=== PATIENT | female | born 1945 | race Caucasian/White ===

== ENCOUNTER → 2016-05-19 | Outpatient (CLI) | payer MEDICARE, OTHER ==
--- NOTE | 2016-05-19 11:03 | KCIC ---
PROCEDURE Right foot radiographs. HISTORY M79.671, right foot pain for 6+ months. No known injury. COMPARISON None. FINDINGS AP, lateral, and oblique views of the right foot. No acute fracture or dislocation is identified. No dislocation is identified. No focal soft tissue swelling is seen. No significant degeneration is appreciated. IMPRESSION Unremarkable right foot radiographs. Electronically signed by: Alcides Manuel MD (May 19, 2016 11:02:10)
== END | disposition home or self-care (01) ==
LOC: KCIC 10:12
PROVIDERS: ATTEND Nurse Practitioner Family
DX: M79.671 Pain in right foot (principal)
CPT/HCPCS: 73630

== ENCOUNTER → 2016-06-30 | Outpatient (CLI) | payer MEDICARE, OTHER ==
--- NOTE | 2016-06-30 17:13 | KCIC ---
PROCEDURE CT of the cervical spine without contrast HISTORY Degenerative arthritis of the cervical spine. Chronic neck pain with bilateral radiculopathy. No trauma or injury. COMPARISON 03/18/2015. TECHNIQUE Standard noncontrast imaging. Exposure: One or more of the following individualized dose reduction techniques were utilized for this exam: 1. Automated exposure control. 2. Adjustment of the mA and/or kV according to patient size. 3. Use of iterative reconstruction technique. FINDINGS Ring of C1 intact No evidence of acute fracture or aggressive bone destruction. Multilevel cervical spondylosis with osteophytes. These findings are greatest at C4-5, C5-6 and C6-7 C2-3: There appears to be a small central disc bulge or protrusion, similar. C3-C4: Mild disc bulge slightly indenting the thecal sac and with mild left neural foraminal narrowing, appears similar. C4-C5: There is broad disc bulging/protrusion, greater towards the right. Narrowing of the central spinal canal, also slightly greater towards the right. Mild neural foraminal narrowing bilaterally. The appearance is unchanged since prior study. C5-C6: Broad disc bulging and osteophytes. Moderate narrowing of the spinal canal. Severe bilateral neural foraminal stenosis, greater on the left. Findings appears stable since prior study. C6-C7: Posterior osteophytes and disc material, results in mild or moderate central spinal stenosis. There does appear to be some soft tissue narrowing of the neural foramina bilaterally, left greater than right, similar to the prior study. C7-T1: Unremarkable Prevertebral soft tissues appear unremarkable without swelling or hematoma. IMPRESSION Cervical spondylosis, appears similar to the prior study. Electronically signed by: Alcides Morgan MD (Jun 30, 2016 17:12:22)
== END | disposition home or self-care (01) ==
LOC: KCIC CT 11:04
PROVIDERS: ATTEND Nurse Practitioner Family
DX: M47.892 Other spondylosis, cervical region (principal)
CPT/HCPCS: 72125

== ENCOUNTER → 2016-09-13 | Outpatient (CLI) | payer MEDICARE, OTHER ==
[~2016-09-13] MED LIST: ACET325T9 PO; CALC625T20 PO; FLUT1DIS IH; INSU100I13 SQ; INSU100V31 SQ; MULT1TAB52 PO; SITA100T PO; TELM40TA PO
[2016-09-13 15:23] LABS: BASO # 0.2 x10^3/uL (0.0-0.2); BASO % 1 % (0-3); EOS % 2 % (0-3); HEMATOCRIT 40.8 % (36.0-47.0); HEMOGLOBIN 13.9 g/dL (12.0-15.5); LYMPH # 4.5 x10^3/uL (1.0-4.8); LYMPH % 37 % (24-48); MEAN CORPUSCULAR HEMOGLOBIN 31 pg (25-35); MEAN CORPUSCULAR HGB CONC 34 g/dL (31-37); MEAN CORPUSCULAR VOLUME 92 fL (79-100); MONO % 7 % (0-9); NEUT % 52 % (31-73); PLATELET COUNT 210 x10^3/uL (140-400); RED BLOOD COUNT 4.46 x10^6/uL (3.50-5.40); RED CELL DISTRIBUTION WIDTH 14.2 % (11.5-14.5); WHITE BLOOD COUNT 12.1 x10^3/uL (4.0-11.0)
--- NOTE | 2016-09-13 15:41 | EKG ---
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
[2016-09-13 15:57] LABS: ALBUMIN 4.1 g/dL (3.4-5.0); ALBUMIN/GLOBULIN RATIO 1.1 (1.0-1.7); CALCIUM 9.7 mg/dL (8.5-10.1); CREATININE 1.5 mg/dL (0.6-1.0); GFR 34.1; POTASSIUM 4.1 mmol/L (3.5-5.1); TOTAL BILIRUBIN 0.4 mg/dL (0.2-1.0); TOTAL PROTEIN 7.7 g/dL (6.4-8.2)
== END | disposition home or self-care (01) ==
LOC: SURGPAT 14:23
PROVIDERS: ATTEND Neurological Surgery
DX: I49.8 Other specified cardiac arrhythmias (principal); R94.31 Abnormal electrocardiogram [ECG] [EKG]
CPT/HCPCS: 36415; 80053; 85027; 93005

== ENCOUNTER → 2016-09-15 | Outpatient (CLI) | payer MEDICARE, OTHER | END | disposition home or self-care (01) | LOC: OPS 08:43 | PROVIDERS: ATTEND Neurological Surgery | DX: M54.12 Radiculopathy, cervical region (principal); M48.02 Spinal stenosis, cervical region | CPT/HCPCS: 36415; 87641 ==

== ENCOUNTER 2016-09-19 07:11 | Inpatient (IN) | payer MEDICARE, OTHER ==
[~2016-09-19] VITALS: Ht 160 cm; Wt 82.6 kg
[2016-09-19] VITALS (12 sets, daily range): BP systolic 107–149; BP diastolic 68–88
[~2016-09-19 07:11] MED LIST changes: +BACITRACIN 50,000 UNIT in IV NORMAL SALINE 1000ML BAG 1,000 ML IRR ONE; +IV RINGERS,LACTATED 1000ML 1,000 ML IV SCH; +LIDOCAINE 1% 1 ML SYRINGE. ID PRN; +MORPHINE SULFATE 2 MG/ML DISP.SYRIN. IV PRN; +ONDANSETRON PF 4 MG/2 ML VIAL. IV PRN; +PROCHLORPERAZINE 10 MG/2 ML VIAL. IV PRN; +fentaNYL PF VIAL 100 MCG/2 ML VIAL IV PRN
[2016-09-19] MEDS ORDERED: SCOPOLAMINE 1.5MG PATCH. TD ONE (08:00)
[2016-09-19] MEDS ORDERED: DESFLURANE > 120 MINUTES IH ONE (08:08)
[2016-09-19] MEDS ORDERED: THROMBIN TOPICAL 20,000 UNIT SPRAY.SYRN KIT TP ONE (08:09)
[2016-09-19] MEDS ORDERED: BUPIVAC MPF-EPI 0.5%-1:200000 30 ML VIAL. ONE (08:09)
[2016-09-19] MEDS ORDERED: GELATIN SPONGE SIZE 100. ONE (08:09)
[2016-09-19] MEDS ORDERED: PROPOFOL 100 ML IV ONE (08:18)
[2016-09-19] MEDS ORDERED: DEXAMETHASONE SOD PHOS 20 MG/5 ML VIAL. ONE (08:22)
[2016-09-19] MEDS ORDERED: ROCURONIUM 50 MG/5 ML VIAL. ONE (08:22)
[2016-09-19] MEDS ORDERED: fentaNYL PF VIAL 100 MCG/2 ML VIAL ONE (08:22)
[2016-09-19] MEDS ORDERED: LIDOCAINE 2% PF Vial for OR 5 ML VIAL. ONE (08:22)
[2016-09-19] MEDS ORDERED: ONDANSETRON PF 4 MG/2 ML VIAL. ONE (08:22)
[2016-09-19] MEDS ORDERED: PROPOFOL 20 ML IV ONE (08:22)
[2016-09-19] MEDS ORDERED: REMIFENTANIL 2 MG VIAL. IV ONE (08:22)
[2016-09-19] MEDS ORDERED: 0.9 % SODIUM CHLORIDE 50 ML VIAL. IJ ONE (08:22)
--- NOTE | 2016-09-19 08:41 | PREOP HP ---
DATE OF SERVICE: 09/19/2016 HISTORY OF PRESENT ILLNESS: The patient is a pleasant 70-year-old, who has undergone 7 lumbar surgeries in the past. Her current problem is back pain, which radiates into her shoulders equally. She has daily headaches. The problem has been present for several years and has become very severe this year. She rates her pain as a 5-6/10. Virtually any activity when using her arms increases her pain. She had epidural steroid injections without help. She had cervical facet rhizotomy, which she said did help a little bit. She takes Aleve for pain and also rest when her neck is painful to gain relief. PAST MEDICAL HISTORY: Artificial knee and hypertension. PAST SURGICAL HISTORY: Surgery for degenerative disk disease and bulging disk in 1992, 2016. FAMILY HISTORY: Diabetes, heart problem/disease, hypertension. SOCIAL HISTORY: Retired. . Denies substance abuse. Denies tobacco use. Drinks alcohol 1 or 2 times per month. Drinks soda daily. ALLERGIES: No known drug allergies. CURRENT MEDICATIONS: Micardis, Januvia, Humalog, Lantus, daily vitamin, fiber and Aleve. REVIEW OF SYSTEMS: A 12-point review of systems was obtained and is noncontributory except for that mentioned above. PHYSICAL EXAMINATION: NEUROSURGERY EXAMINATION: GENERAL APPEARANCE: Alert, pleasant, in no acute distress. HEENT: Head normocephalic and atraumatic. NECK AND THYROID: Zchv-xh-azajhlvz tenderness with palpation of posterior cervical region. SKIN: Warm and dry. MUSCULOSKELETAL: Cervical paraspinal muscle bulk is normal, restricted range of motion of the cervical spine, normal range of motion of the upper extremities bilaterally. EXTREMITIES: No clubbing, cyanosis or edema. NEUROLOGIC: Alert and oriented x 3, normal recent and remote memory, strength 5/5 in bilateral upper and 5/5 in bilateral lower extremities, sensory was intact to light touch in the upper and lower extremities, reflexes were trace in the symmetric in the upper and lower extremities bilaterally, normal gait. IMAGING: Reviewed. I reviewed her cervical myelogram and post-myelogram, CT scan. On that study, there is moderately severe diffuse cervical spondylosis. PRINCIPAL ABNORMALITIES: C5-C6. At that level, there are posterior vertebral body osteophytes with severe bilateral neural foraminal narrowing. The AP diameter of the canal is about 7 mm. On the plain myelography portion, there is ____ swelling at the C5 nerve roots bilaterally at this level. ASSESSMENTS: 1. There is spondylosis with radiculopathy, cervical region. 2. Spinal stenosis, cervical region. PLAN: I explained to her that I could operate at C5-C6. I felt that this would help her to a degree. However, because of her diffuse cervical spondylosis, she may develop future problems with her neck, which could require surgery and also she may have little improvement following surgery. ____ whether or not to proceed with ____ operation. She would strongly like to go ahead with surgery. I did discuss with her in detail. I carefully outlined the risks of surgery including soft tissue structures injury in the neck and the sequelae of injury for example with stroke, paralysis, injury to the esophagus, trachea or infection. She understands. She would like to go ahead with surgery. We will make the arrangements. AKSHAT SPRING MD DR: PADMINI/an JOB#: [id number] / [id number]
[2016-09-19] MEDS ORDERED: ePHEDrine PF IN SALINE 50 MG/5 ML DISP.SYRIN IV ONE (09:10)
[2016-09-19] MEDS ORDERED: GLYCOPYRROLATE 1 MG/5 ML VIAL. ONE (09:10)
[2016-09-19] MEDS ORDERED: PHENYLEPHRINE in 0.9% NACL PF 1 MG/10 ML DISP.SYRIN. IV ONE (09:20)
[2016-09-19] MEDS: fentaNYL PF VIAL 100 MCG/2 ML VIAL IV PRN ×2 (11:47→12:02)
[2016-09-19] MEDS: HYDROmorphone 2 MG/ML VIAL IV PRN ×3 (12:03→13:03)
[2016-09-19] MEDS ORDERED: DEXTROSE 50% 25 GM / 50ML DISP.SYRIN. IV PRN (12:15)
[2016-09-19] MEDS ORDERED: MAG HYDROX/ALUMINUM HYD/SIMETH 30 ML ORAL.SUSP PO PRN (12:15)
[2016-09-19] MEDS ORDERED: MAGNESIUM HYDROXIDE 2,400 MG/30 ML ORAL.SUSP. PO PRN (12:15)
[2016-09-19] MEDS ORDERED: diphenhydrAMINE HCL 25 MG CAPSULE PO PRN (12:15)
[2016-09-19] MEDS ORDERED: HYDROcodone/APAP 7.5/325MG 1 TAB TABLET PO PRN (12:15)
[2016-09-19] MEDS ORDERED: ACETAMINOPHEN 325 MG TABLET. PO PRN ×2 (12:15)
[2016-09-19] MEDS ORDERED: CALCIUM CARBONATE 500 MG TAB.CHEW PO PRN (12:15)
[2016-09-19] MEDS ORDERED: fentaNYL PF VIAL 100 MCG/2 ML VIAL IV PRN (12:15)
[2016-09-19] MEDS ORDERED: diphenhydrAMINE 50 MG/ML VIAL IV PRN (12:15)
[2016-09-19] MEDS ORDERED: ONDANSETRON PF 4 MG/2 ML VIAL. IV PRN (12:15)
[2016-09-19] MEDS ORDERED: 0.9 % SODIUM CHLORIDE 10 ML DISP.SYRIN. IV PRN (12:15)
[2016-09-19] MEDS: POTASSIUM CL 20MEQ-0.45% NACL 1,000 ML IV SCH (13:04)
--- NOTE | 2016-09-19 13:57 | OP ---
DATE OF SURGERY: 09/19/2016 PREOPERATIVE DIAGNOSES: Cervical spondylosis with severe neural foraminal narrowing and cervical radiculopathy, C5-C6. POSTOPERATIVE DIAGNOSES: Cervical spondylosis with severe neural foraminal narrowing and cervical radiculopathy, C5-C6. OPERATION PERFORMED: An anterior cervical microdiskectomy at C5-C6, anterior cervical interbody fusion C5-C6 with allograft and autograft bone, and anterior cervical plate C5-C6. The operation was done with multimodality monitoring including EMG monitoring, SSEP monitoring, motor evoked potentials, fluoroscopy, and microscopic dissection. SURGEON: Seb Spring M.D. DIRECTOR OF NUCLEAR MEDICINE: Ritchie Dodd MD, assisted with surgery, assisted with the exposure and the microdiskectomy as well as the closure. OPERATIVE INDICATIONS: The patient is a very pleasant 71-year-old woman who developed intractable neck and bilateral shoulder and arm pain and was found after failing conservative measures to have severe foraminal stenosis and nerve root swelling at C5-C6. She had diffuse cervical spondylosis, and I explained to her the surgery most likely would help her but that she could have other problems in the future. She understood the surgery. She understood the risks, she understood the techniques. She wished to go ahead. DESCRIPTION OF PROCEDURE: Following general endotracheal anesthesia, the patient was positioned supine on the Operating Room table. The anterior cervical region was prepped and draped in standard fashion. FRED hose and AV impulse boots were applied for DVT prophylaxis. A microscope was draped. Fluoroscopy was draped and brought into field. Monitoring was established. Ancef 2 g was given less than 1 hour prior to initiation of surgery. Using fluoroscopic guidance, incision was made in the midline around to the right side in a skin crease. I dissected down through skin and subcutaneous tissue and dissected on the medial aspect of the sternocleidomastoid and carotid artery sheath after sharply dividing the platysma. I did use fluoroscopic imaging to guide my approach, and I identified the C5-C6 interspace. I placed an anterior cervical retractor with the blades wedged in the longus colli muscle. I brought in the microscope at this time. I placed 14-mm pins in the vertebral body of C5 and C6 and gently distracted the disc space. I incised the anterior annulus. I used a high speed air drill and drilled the anterior spurring, and I saved this bone to augment the allograft bone for the interbody fusion. I then performed a discectomy with pituitary rongeurs as well as the endplate scraper posteriorly. I drilled the posterior spurring and used 1 and 2 mm micro Kerrisons to remove the annulus, and then I opened the ligament with the micro blunt hook and then opened this widely with 1-2 mm micro Kerrison's. As I worked, I felt that I had an excellent opening of the neural foramina. The endplates have been prepared for fusion. Hemostasis was excellent. I measured and placed a 6 mm interbody fusion cage which was packed with allograft and autograft bone, and this was gently tapped into position. I then further drilled the anterior spurring to allow excellent positioning of the plate, and after that has been performed, fusion plate of 22 mm using [employer] system was dropped into place and four 13-mm screws were placed without difficulty and locked. I irrigated it copiously, removed the retractors. Hemostasis was perfect. I then closed the wound with absorbable sutures. The skin was closed with 4-0 subcuticular stitch. The operation went very well. I was quite pleased with the surgery. SEB SPRING MD DR: PADMINI/an JOB#: [id number] / [id number] BRYAN
[2016-09-19] MEDS: METHOCARBAMOL 750 MG TABLET PO SCH ×2 (16:19→20:39)
[2016-09-19] MEDS: INSULIN ASPART 300 UNITS/3 ML INSULN.PEN SQ SCH (16:58)
[2016-09-19] MEDS: ALBUTEROL SULFATE 2.5 MG/3 ML NEBU. NEB SCH (19:51)
[2016-09-19] MEDS: BUDESONIDE 0.5 MG/2 ML NEBU. NEB SCH (19:51)
[2016-09-19] MEDS: DOCUSATE SODIUM 100 MG CAPSULE. PO SCH (20:39)
[2016-09-19] MEDS: HYDROcodone/APAP 7.5/325MG 1 TAB TABLET PO PRN (20:40)
[2016-09-19] MEDS ORDERED: INSULIN DETEMIR 300 UNITS/3 ML INSULN.PEN. SQ SCH (21:00)
[2016-09-19] MEDS ORDERED: NON FORMULARY ITEM (Fluticasone/Salmeterol (Advair 100-50 Diskus) 1 INH) IH SCH (21:00)
[2016-09-20] MEDS: POTASSIUM CL 20MEQ-0.45% NACL 1,000 ML IV SCH (02:20)
[2016-09-20] MEDS: HYDROcodone/APAP 7.5/325MG 1 TAB TABLET PO PRN (02:41)
[2016-09-20 02:42] VITALS: BP 132/73
[2016-09-20 06:03] VITALS: BP 117/73
[2016-09-20] MEDS: ALBUTEROL SULFATE 2.5 MG/3 ML NEBU. NEB SCH ×2 (07:49→11:09)
[2016-09-20] MEDS: BUDESONIDE 0.5 MG/2 ML NEBU. NEB SCH (07:50)
[2016-09-20] MEDS: DOCUSATE SODIUM 100 MG CAPSULE. PO SCH (07:52)
[2016-09-20] MEDS: METHOCARBAMOL 750 MG TABLET PO SCH (07:52)
[2016-09-20] MEDS: INSULIN ASPART 300 UNITS/3 ML INSULN.PEN SQ SCH (08:07)
--- NOTE | 2016-09-20 08:07 | ACF ---
Admission Forms Criteria PAIN MANAGEMENT GR Clinical Indications for Admission to Inpatient Care (Place 'X' for any and all applicable criteria): Hospital admission is needed for appropriate care of the patient because of 1 or more of the following are present (1)(2)(3)(4)(5): [ ]I. Severe pain requiring acute inpatient management as indicated by 1 or more of the following (2)(5)(10): [ ]a) Continuous or frequent (eg, every 2 to 4 hours) parenteral analgesics required [A] [ ]b) Necessity (ie, alternative approaches not effective) for analgesic regimen that can only be performed or initiated in inpatient setting [X]II. Pain causing debilitation to the point of inability to function or be supported at any other level of care [ ]III. Severe side effects from pain medications as indicated by ANY ONE of the following (12)(13)(14)(15): [ ]a) Uncontrollable seizures [ ]b) Cardiac arrhythmias of immediate concern [ ]c) Dehydration that is severe or persistent [ ]d) Vomiting that is severe or persistent [ ]e) Altered mental status that is severe or persistent [ ]f) Obstipation with inadequate GI function to maintain nutrition The original [employer] content created by [employer] has been revised. The portions of the content which have been revised are identified through the use of italic text or in bold, and [employer] [facility] [employer] has neither reviewed nor approved the modified material. All other unmodified content is copyright [employer] Please see references footnoted in the original [employer] edition 2016 Admission Criteria Met?: Yes JESSENIA HINES Sep 20, 2016 08:07
[2016-09-20] MEDS ORDERED: CALCIUM POLYCARBOPHIL 625 MG TABLET PO SCH (09:00)
[2016-09-20] MEDS ORDERED: LOSARTAN POTASSIUM 50 MG TABLET. PO SCH (09:00)
[2016-09-20] MEDS ORDERED: MULTIVITAMIN with MINERAL TABLET. PO SCH (09:00)
[2016-09-20] MEDS ORDERED: LINAGLIPTIN 5 MG TABLET PO SCH (09:00)
--- NOTE | 2016-09-20 09:35 | DISCH ---
DISCHARGE INSTRUCTIONS Condition on Discharge Condition on Discharge: Stable Activity After Discharge Activity Instructions for Disc: Activity as tolerated, Avoid exertion Other activity instructions: No driving for a week Bathing Instructions: Shower-keep dressing dry Lifting Instructions after Dis: No heavy lifting, No pulling or pushing, Do not lift >10 pounds Diet after Discharge Additional Diet Restrictions: resume home diet Wound Incision Care Wound/Incision Care: Ice to area for comfort Other wound/incision instructi: may remove dressing in 48 hrs if dry then may shower- no soaking Contacting the after DC Call your doctor for: Concerns you may have Follow-Up Follow up with: Dr. Schwartz's nurse in 2 weeks [phone] FAVIOLA PEREIRA BAND SALVAGER Sep 20, 2016 09:35
[2016-09-20] MEDS ORDERED: HYDR-2762 PO (09:46)
[2016-09-20] MEDS ORDERED: DOCU-109 PO (09:46)
[2016-09-20] MEDS ORDERED: METH750T2 PO (09:47)
[2016-09-20 11:00] VITALS: BP 128/86
--- NOTE | 2016-09-20 22:08 | DS ---
DATE OF DISCHARGE: 09/20/2016 DISCHARGE DIAGNOSES: Cervical spondylosis with severe neural foraminal narrowing and cervical radiculopathy, C5-C6. OPERATION PERFORMED: Anterior cervical microdiskectomy at C5-C6, anterior cervical interbody fusion C5-C6 with allograft and autograft bone and anterior cervical plate, C5-C6. HISTORY OF PRESENT ILLNESS: The patient is a pleasant 71-year-old, who developed intractable neck, bilateral shoulder, arm pain and was found to have severe foraminal stenosis and nerve root swelling at C5-C6. She had a few cervical spondylosis and after failing conservative measures, I explained to her the surgery likely would help her, but that she may have other problems in the future. She understood the surgery, the risks, the technique and the expected postoperative course and wished to go ahead. HOSPITAL COURSE: She was admitted to the floor postoperatively, where she did well. She was able to be up ambulating in the room and in the halls. Physical therapy was initiated and instruction was given to her regarding her activities. Her pain is well controlled and she is in good condition to discharge home today. DISCHARGE MEDICATIONS: She will resume her medications per the MRAD. DISCHARGE INSTRUCTIONS: She was instructed regarding incision care, activity restrictions and expectations for the next several weeks. She will follow up in our office in 2 weeks. She understands to call with any questions or concerns. AKSHAT SPRING MD DR: ROLA/an JOB#: [id number] / [id number]
--- NOTE | 2016-09-21 11:34 | PATHOLOGY ---
PATHOLOGY REPORT * * * * * * * * FINAL DIAGNOSIS: Segments of fibrocartilaginous and skeletal muscle tissue and bone, cervical disc: - Degenerative changes of fibrocartilaginous tissue. COMMENT: There is no evidence of an acute inflammatory process or malignancy. REPORT ELECTRONICALLY SIGNED BY: Trung Hernandez M.D. DATE/TIME: 09/21/2016 11:33 * * * * * * * * GROSS PATHOLOGY: Received in formalin labeled "Carie Meyers cervical disc" are multiple segments of green, rubbery, and gritty tissue admixed with bone. The specimen measures 2.5 x 2.0 x 0.8 cm in aggregate dimensions. The tissue is submitted entirely in cassette A1, following decalcification. INITIAL CPT CODE(S): A; 48834, 19877 Professional services performed [place] [facility] [place] [address] Technical services performed by [facility] at [address] [place] [address], [facility] [address], [place] [address]. SPECIMEN(S) RECEIVED: A.Cervical disc CLINICAL HISTORY: Cervical stenosis and radiculopathy PATIENT: CARIE MEYERS /AGE: 6 1945 (Age: 71) PATIENT #: [id number] ALT CASE #: SPECIMEN COLLECTION DATE: 09/19/2016 SPECIMEN RECEIVED DATE: 09/19/2016 [facility] - [address] [place] [address] - PHONE: [phone] * * * END OF REPORT * * *
== END 2016-09-20 12:45 | disposition home or self-care (01) | DRG 473 ==
LOC: OPSVCIP 07:11 → 4 SOUTHEST 12:30
PROVIDERS: ADMIT Neurological Surgery; ATTEND Neurological Surgery
PROC: 4A11X4G Monitoring of Peripheral Nervous Electrical Activity, Intraoperative, External Approach (ICD-10-PCS; 2016-09-19)
PROC: 0RB30ZZ Excision of Cervical Vertebral Disc, Open Approach (ICD-10-PCS; 2016-09-19)
PROC: 0RG10A0 Fusion of Cervical Vertebral Joint with Interbody Fusion Device, Anterior Approach, Anterior Column, Open Approach (ICD-10-PCS; principal; 2016-09-19 08:30)
DX: M47.22 Other spondylosis with radiculopathy, cervical region (principal); I10 Essential (primary) hypertension; M48.02 Spinal stenosis, cervical region; Z82.49 Family history of ischemic heart disease and other diseases of the circulatory system; Z83.3 Family history of diabetes mellitus
CPT/HCPCS: 76000; 82962; 88304; 88311; 94250; 94640; 94760; C1713; J0690; J0780; J1100; J1170; J1815; J2370; J2405; J2704; J3010; J3490; J7030; J7120; 97530

== ENCOUNTER → 2016-12-20 | Outpatient (CLI) | payer MEDICARE, OTHER ==
[~2016-12-20] MED LIST changes: -BACITRACIN 50,000 UNIT in IV NORMAL SALINE 1000ML BAG 1,000 ML IRR ONE; +DOCU-109 PO; +HYDR-2762 PO; -IV RINGERS,LACTATED 1000ML 1,000 ML IV SCH; -LIDOCAINE 1% 1 ML SYRINGE. ID PRN; +METH750T2 PO; -MORPHINE SULFATE 2 MG/ML DISP.SYRIN. IV PRN; -ONDANSETRON PF 4 MG/2 ML VIAL. IV PRN; -PROCHLORPERAZINE 10 MG/2 ML VIAL. IV PRN; -fentaNYL PF VIAL 100 MCG/2 ML VIAL IV PRN
--- NOTE | 2016-12-20 14:17 | KCIC ---
Examination: 2 views of the cervical spine HISTORY: History of status post fusion. COMPARISON: CT from 06/30/2016 FINDINGS: Anterior cervical fusion identified at C5-C6 vertebral level with intervertebral disc spacer in place. The facets are well aligned. There is mild to moderate intervertebral disc height loss identified at C4-C5 vertebral level with small anterior osteophyte formation. There is moderate intervertebral disc height loss identified at C6-C7 vertebral level with small anterior osteophyte formation. The spinolaminar line is maintained. No evidence of listhesis. No evidence of prevertebral soft tissue swelling. Lateral masses of C1 are aligned with C2 vertebra. Impression: 1. Anterior cervical fusion hardware identified at C5-C6 vertebral levels with intervertebral disc spacer. 2. Mild to moderate degenerative changes identified at C4-C5 and moderate degenerative changes at C6-C7 vertebral levels. Electronically signed by: Mich Bishop MD (12/20/2016 2:14 PM) [facility]-KCIC2
== END | disposition home or self-care (01) ==
LOC: KCIC 12:56
PROVIDERS: ATTEND Neurological Surgery
DX: M47.892 Other spondylosis, cervical region (principal); Z98.1 Arthrodesis status
CPT/HCPCS: 72040

== ENCOUNTER → 2017-07-14 | Outpatient (CLI) | payer MEDICARE, OTHER | END | disposition home or self-care (01) | LOC: KCIC MAMMO 11:28 | DX: Z12.31 Encounter for screening mammogram for malignant neoplasm of breast (principal) | CPT/HCPCS: 77063; 77067 ==

== ENCOUNTER 2017-10-29 19:47 | Inpatient (IN) | payer MEDICARE, OTHER ==
[2017-10-29] MEDS ORDERED: DEXTROSE 50% 25 GM / 50ML DISP.SYRIN. IV (20:15)
[2017-10-29] MEDS ORDERED: 0.9 % SODIUM CHLORIDE 10 ML DISP.SYRIN. IV (20:15)
[2017-10-29 21:03] LABS: POC GLUCOSE 208 mg/dL (70-99)
[2017-10-29] MEDS ORDERED: hydrALAZINE 20 MG/ML VIAL. IVP (22:00)
[2017-10-29] MEDS: INSULIN GLARGINE 300 UNITS/3 ML INSULN.PEN. SQ (22:49)
[2017-10-29] MEDS: INSULIN LISPRO 300 UNITS/3 ML INSULN.PEN. SQ (22:49)
[2017-10-30] MEDS: ACETAMINOPHEN 325 MG TABLET. PO ×2 (00:59→20:06)
[2017-10-30] MEDS: INSULIN LISPRO 300 UNITS/3 ML INSULN.PEN. SQ ×6 (08:00→17:11)
[2017-10-30 08:06] LABS: POC GLUCOSE 239 mg/dL (70-99)
[2017-10-30 08:08] LABS: ADD MAN DIFF? NO
[2017-10-30 08:17] LABS: BASO # 0.1 x10^3/uL (0.0-0.2); BASO % 1 % (0-3); EOS # 0.3 x10^3/uL (0.0-0.7); EOS % 3 % (0-3); HEMATOCRIT 41.5 % (36.0-47.0); HEMOGLOBIN 14.3 g/dL (12.0-15.5); LYMPH # 3.5 x10^3/uL (1.0-4.8); LYMPH % 37 % (24-48); MEAN CORPUSCULAR HEMOGLOBIN 32 pg (25-35); MEAN CORPUSCULAR HGB CONC 34 g/dL (31-37); MEAN CORPUSCULAR VOLUME 92 fL (79-100); MONO # 0.8 x10^3/uL (0.0-1.1); MONO % 9 % (0-9); NEUT # 4.9 x10^3uL (1.8-7.7); NEUT % 51 % (31-73); PLATELET COUNT 190 x10^3/uL (140-400); RED CELL DISTRIBUTION WIDTH 13.6 % (11.5-14.5); WHITE BLOOD COUNT 9.7 x10^3/uL (4.0-11.0)
[2017-10-30] MEDS: LINAGLIPTIN 5 MG TABLET PO (08:26)
[2017-10-30] MEDS: ALBUTEROL SULFATE 2.5 MG/3 ML NEBU. NEB ×5 (08:27→19:12)
[2017-10-30] MEDS: BUDESONIDE 0.5 MG/2 ML NEBU. NEB ×2 (08:27→19:12)
[2017-10-30] MEDS: LOSARTAN POTASSIUM 50 MG TABLET. PO (08:28)
[2017-10-30 08:39] LABS: ANION GAP 11 (6-14); BLOOD UREA NITROGEN 22 mg/dL (7-20); CALCIUM 9.1 mg/dL (8.5-10.1); CARBON DIOXIDE 23 mmol/L (21-32); CHLORIDE 105 mmol/L (98-107); CHOLESTEROL 177 mg/dL (0-200); CHOLESTEROL/HDL RATIO 4.5; CREATININE 1.4 mg/dL (0.6-1.0); GFR 36.8; GLUCOSE 253 mg/dL (70-99); HDLC 39 mg/dL (40-60); LDLC 85 mg/dL (0-100); NON-HDL CHOLESTEROL 138 mg/dL (0-129); POTASSIUM 3.8 mmol/L (3.5-5.1); SODIUM 139 mmol/L (136-145); TRIGLYCERIDES 266 mg/dL (0-150); VLDLC 53 mg/dL (0-40)
[2017-10-30] MEDS ORDERED: NON FORMULARY ITEM (Fluticasone/Salmeterol (Advair 100-50 Diskus) 1 PUFF) IH (09:00)
[2017-10-30] MEDS ORDERED: ACETAMINOPHEN 650 MG SUPP.RECT. PR (09:00)
[2017-10-30] MEDS: ASPIRIN ENTERIC COATED 325 MG TABLET.DR. PO (09:35)
[2017-10-30] MEDS ORDERED: DEXTROSE 50% 25 GM / 50ML DISP.SYRIN. IV (10:30)
[2017-10-30 11:31] LABS: VITAMIN-B12 623 pg/mL (247-911)
[2017-10-30 11:45] LABS: POC GLUCOSE 341 mg/dL (70-99)
[2017-10-30 16:52] LABS: POC GLUCOSE 299 mg/dL (70-99)
[2017-10-30] MEDS: INSULIN GLARGINE 300 UNITS/3 ML INSULN.PEN. SQ (20:04)
[2017-10-30 20:06] LABS: POC GLUCOSE 260 mg/dL (70-99)
[2017-10-30] MEDS: HYDROcodone/APAP 5/325MG 1 TAB TABLET PO (23:13)
[2017-10-31 04:59] LABS: HEMATOCRIT 39.6 % (36.0-47.0); HEMOGLOBIN 13.5 g/dL (12.0-15.5); MEAN CORPUSCULAR HEMOGLOBIN 31 pg (25-35); MEAN CORPUSCULAR HGB CONC 34 g/dL (31-37); MEAN CORPUSCULAR VOLUME 92 fL (79-100); PLATELET COUNT 182 x10^3/uL (140-400); RED BLOOD COUNT 4.32 x10^6/uL (3.50-5.40); RED CELL DISTRIBUTION WIDTH 13.1 % (11.5-14.5); WHITE BLOOD COUNT 11.4 x10^3/uL (4.0-11.0)
[2017-10-31 05:37] LABS: ALBUMIN 3.5 g/dL (3.4-5.0); ALBUMIN/GLOBULIN RATIO 1.1 (1.0-1.7); ALK PHOS 83 U/L (46-116); ALT (SGPT) 31 U/L (14-59); ANION GAP 11 (6-14); AST (SGOT) 25 U/L (15-37); BLOOD UREA NITROGEN 22 mg/dL (7-20); BUN/CREATININE RATIO 16 (6-20); CALCIUM 8.9 mg/dL (8.5-10.1); CARBON DIOXIDE 23 mmol/L (21-32); CHLORIDE 104 mmol/L (98-107); CREATININE 1.4 mg/dL (0.6-1.0); GFR 36.8; GLUCOSE 234 mg/dL (70-99); SODIUM 138 mmol/L (136-145); TOTAL BILIRUBIN 0.4 mg/dL (0.2-1.0); TOTAL PROTEIN 6.8 g/dL (6.4-8.2)
[2017-10-31 07:57] LABS: POC GLUCOSE 229 mg/dL (70-99)
[2017-10-31 07:58] LABS: SEDIMENTATION RATE 4 (0-25)
[2017-10-31] MEDS: ASPIRIN ENTERIC COATED 325 MG TABLET.DR. PO (08:25)
[2017-10-31] MEDS: LINAGLIPTIN 5 MG TABLET PO (08:25)
[2017-10-31] MEDS: LOSARTAN POTASSIUM 50 MG TABLET. PO (08:26)
[2017-10-31] MEDS: HYDROcodone/APAP 5/325MG 1 TAB TABLET PO (08:26)
[2017-10-31] MEDS: INSULIN LISPRO 300 UNITS/3 ML INSULN.PEN. SQ ×6 (08:30→17:31)
[2017-10-31] MEDS: ALBUTEROL SULFATE 2.5 MG/3 ML NEBU. NEB ×4 (09:07→19:45)
[2017-10-31] MEDS: BUDESONIDE 0.5 MG/2 ML NEBU. NEB ×2 (09:07→19:45)
[2017-10-31 12:15] LABS: POC GLUCOSE 332 mg/dL (70-99)
[2017-10-31 17:00] LABS: POC GLUCOSE 241 mg/dL (70-99)
[2017-10-31] MEDS: ACETAMINOPHEN 325 MG TABLET. PO (17:33)
[2017-10-31 20:45] LABS: POC GLUCOSE 283 mg/dL (70-99)
[2017-10-31] MEDS: ATORVASTATIN CALCIUM 20 MG TABLET PO (21:28)
[2017-10-31] MEDS: INSULIN GLARGINE 300 UNITS/3 ML INSULN.PEN. SQ (21:32)
[2017-11-01] MEDS: LINAGLIPTIN 5 MG TABLET PO (08:31)
[2017-11-01] MEDS: ASPIRIN ENTERIC COATED 325 MG TABLET.DR. PO (08:31)
[2017-11-01] MEDS: LOSARTAN POTASSIUM 50 MG TABLET. PO (08:32)
[2017-11-01] MEDS: ALBUTEROL SULFATE 2.5 MG/3 ML NEBU. NEB ×2 (08:39→11:41)
[2017-11-01] MEDS: BUDESONIDE 0.5 MG/2 ML NEBU. NEB (08:39)
[2017-11-01] MEDS: INSULIN LISPRO 300 UNITS/3 ML INSULN.PEN. SQ ×4 (08:39→12:04)
[2017-11-01 09:01] LABS: POC GLUCOSE 258 mg/dL (70-99)
[2017-11-01 12:09] LABS: POC GLUCOSE 277 mg/dL (70-99)
== END 2017-11-01 12:30 | DRG 69 ==
LOC: 2 NORTH 19:47 → 6 SOUTH 10-31 14:18
PROVIDERS: Internal Medicine
DX: G45.9 Transient cerebral ischemic attack, unspecified (principal); E11.9 Type 2 diabetes mellitus without complications; I10 Essential (primary) hypertension; E78.5 Hyperlipidemia, unspecified; J44.9 Chronic obstructive pulmonary disease, unspecified; K21.9 Gastro-esophageal reflux disease without esophagitis; M19.90 Unspecified osteoarthritis, unspecified site; F32.9 Major depressive disorder, single episode, unspecified; F41.9 Anxiety disorder, unspecified; D64.9 Anemia, unspecified; Z96.659 Presence of unspecified artificial knee joint; Z86.73 Personal history of transient ischemic attack (TIA), and cerebral infarction without residual deficits; Z91.81 History of falling; Z90.710 Acquired absence of both cervix and uterus; Z98.1 Arthrodesis status; Z87.01 Personal history of pneumonia (recurrent); Z87.440 Personal history of urinary (tract) infections; Z83.3 Family history of diabetes mellitus; Z82.49 Family history of ischemic heart disease and other diseases of the circulatory system
CPT/HCPCS: 36415; 70450; 72100; 80048; 80053; 80061; 82607; 82962; 85025; 85027; 85651; 92610-GN; 93880; 94640; 94760; 97110-GP; 97116-GP; 97162-GP; 97166-GO; 97530-GO; 97535-GO; C8929; J1815; J7613; J7626

== ENCOUNTER → 2018-01-29 | Outpatient (CLI) | payer MEDICARE, OTHER ==
[2017-11-01 11:29] VITALS: BP 129/79
[~2018-01-29] MED LIST changes: +ACET500T68 PO; +ASPI-630 PO; +INSU100C SQ; +METH454P2 PO; +SERT50TA PO
--- NOTE | 2018-01-29 14:46 | KCIC ---
CT of the cervical spine compared to similar study dated June 30, 2016 for neck pain radiating down the right arm with numbness in the right hand for 4 months. TECHNIQUE: Contiguous helical 2 mm axial images are obtained through the cervical spine. Sagittal and coronal reformations are evaluated. FINDINGS: There has been interval anterior cervical disc fusion at C5-6, with an intervertebral disc spacer. There is a mild posterior osteophyte at this level producing a mild degree of bony central canal stenosis as well. Bulky anterior osteophytes are seen at C4-5 and C6-7. There is also moderate to severe degenerative disc disease at C6-7. At C5-6, there is ACDF, with moderate fusiform posterior osteophytosis contiguous with bilateral uncovertebral facet arthrosis with hypertrophic bone formation extending into the far lateral spaces at the superior portion of the foramina bilaterally. This does result in moderate bilateral bony neural foraminal narrowing and mild central canal stenosis. There is minimal facet arthrosis at this level. At C6-7, findings are similar but to a milder degree, with hypertrophic posterior osteophytosis and uncovertebral arthrosis producing no significant central bony canal stenosis or neural foraminal narrowing. IMPRESSION: 1. Postsurgical changes of fusion at C5-6, with no hardware abnormalities. 2. Moderate posterior and far lateral uncovertebral osteophytosis resulting in mild central canal stenosis and moderate narrowing of the bilateral neuroforamina primarily in the craniocaudal dimension. Electronically signed by: Brandon Payne MD (01/29/2018 2:43 PM) [facility]-PMC3
== END | disposition home or self-care (01) ==
LOC: KCIC CT 10:06
PROVIDERS: ATTEND Nurse Practitioner Family
DX: M47.812 Spondylosis without myelopathy or radiculopathy, cervical region (principal); M43.22 Fusion of spine, cervical region; M50.323 Other cervical disc degeneration at C6-C7 level; M89.38 Hypertrophy of bone, other site; M48.02 Spinal stenosis, cervical region
CPT/HCPCS: 72125

== ENCOUNTER → 2018-02-12 | Outpatient (CLI) | payer MEDICARE, OTHER ==
[2017-11-01 11:29] VITALS: BP 129/79
--- NOTE | 2018-02-12 16:03 | EKG ---
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
[2018-02-12 16:12] LABS: BASO # 0.1 x10^3/uL (0.0-0.2); BASO % 1 % (0-3); EOS # 0.3 x10^3/uL (0.0-0.7); EOS % 3 % (0-3); HEMATOCRIT 42.3 % (36.0-47.0); HEMOGLOBIN 14.4 g/dL (12.0-15.5); LYMPH # 3.7 x10^3/uL (1.0-4.8); LYMPH % 38 % (24-48); MEAN CORPUSCULAR HEMOGLOBIN 31 pg (25-35); MEAN CORPUSCULAR HGB CONC 34 g/dL (31-37); MEAN CORPUSCULAR VOLUME 92 fL (79-100); MONO # 0.9 x10^3/uL (0.0-1.1); MONO % 9 % (0-9); NEUT % 50 % (31-73); PLATELET COUNT 189 x10^3/uL (140-400); RED CELL DISTRIBUTION WIDTH 12.7 % (11.5-14.5); WHITE BLOOD COUNT 9.9 x10^3/uL (4.0-11.0)
[2018-02-12 16:30] LABS: PROTHROMBIN TIME PATIENT 12.9 SEC (11.7-14.0)
== END | disposition home or self-care (01) ==
LOC: SURGPAT 13:40
PROVIDERS: ATTEND Neurological Surgery
DX: Z01.818 Encounter for other preprocedural examination (principal); M48.02 Spinal stenosis, cervical region; M54.12 Radiculopathy, cervical region; E11.9 Type 2 diabetes mellitus without complications
CPT/HCPCS: 36415; 82947; 85025; 85610; 85730; 87641; 93005

== ENCOUNTER → 2018-05-31 | Outpatient (CLI) | payer MEDICARE, OTHER ==
[2018-02-24 15:00] VITALS: BP 134/71
[~2018-05-31] MED LIST changes: -HYDR-2762 PO; +HYDR-2765 PO
--- NOTE | 2018-05-31 14:16 | KCIC ---
2 views of the cervical spine compared to similar study dated December 20, 2016 for follow-up status post cervical fusion. FINDINGS: Right posterior pedicle screw and willie fixation of C6 and C7 is new in the interval. Changes of prior ACDF at C6-7 are stable. No gross hardware abnormality or periprosthetic lucencies are identified. There is straightening of the normal cervical lordosis. This is unchanged. Disc spacer at C5-6 is stable. Degenerative changes at C6-7 are again evident. The atlantoaxial articulation is intact. IMPRESSION: 1. Straightening of the normal cervical lordosis with chronic and postsurgical changes as described. Electronically signed by: Brandon Payne MD (05/31/2018 2:13 PM) [facility]-PMC3
== END | disposition home or self-care (01) ==
LOC: KCIC 11:36
PROVIDERS: ATTEND Neurological Surgery
DX: M43.22 Fusion of spine, cervical region (principal); Z98.1 Arthrodesis status
CPT/HCPCS: 72040

== ENCOUNTER → 2019-05-27 | Outpatient (CLI) | payer MEDICARE, OTHER ==
[2018-02-24 15:00] VITALS: BP 134/71
--- NOTE | 2019-05-28 13:53 | KCIC ---
CERVICAL SPINE 2-3V History: Chronic neck pain. Frequent headaches. Technique: 2 views cervical spine. Comparison: None. Findings: Posterior stabilization right C5-C6. Anterior stabilization and interbody fusion C5-C6. Moderate multilevel cervical spondylosis most prominent C4-C5 and C6-C7. Normal alignment. Normal vertebral body height. No fracture. Prevertebral soft tissues unremarkable. Impression: 1. Postoperative changes C5-C6. 2. Moderate multilevel cervical spondylosis. Electronically signed by: Ryan Nuñez DO (05/28/2019 1:50 PM) [facility]-KCIC1
== END | disposition home or self-care (01) ==
LOC: KCIC 14:49
PROVIDERS: ATTEND Neurological Surgery
DX: M47.812 Spondylosis without myelopathy or radiculopathy, cervical region (principal); R51 Headache; Z98.1 Arthrodesis status
CPT/HCPCS: 72040

== ENCOUNTER → 2019-05-27 | Outpatient (CLI) | payer MEDICARE, OTHER ==
[2018-02-24 15:00] VITALS: BP 134/71
--- NOTE | 2019-05-28 12:44 | KCIC ---
RIGHT HAND, VIEWS 3 Indication: Right hand anomaly, soft tissue. Findings: The area of interest is marked with metallic BB. The metallic BB projects over the third MCP. It is along the volar surface. There is no acute fracture or dislocation. Bony articulations are normal. There is no bony erosion. Mineralization is normal. Minimal soft tissue swelling overlying the PIP and DIP joints. IMPRESSION: No acute bone abnormality. Electronically signed by: Kel Hernandez MD (05/28/2019 12:41 PM) [id number]
--- NOTE | 2019-05-28 13:49 | KCIC ---
Targeted ultrasound of the hand. HISTORY: Nodule at the base of the third metacarpal at the palm of the hand, painful, for one month. TECHNIQUE: Targeted ultrasound is performed at the area of interest, at the palmar base of the third finger. FINDINGS: A small soft tissue nodule is identified at the area of concern, just deep to the skin surface. This measures 6 x 7 x 6 mm diameter. This has a somewhat complex appearance with both solid and cystic components. No significant internal vascularity is identified. IMPRESSION: Ultrasound confirms a small nonspecific soft tissue mass or nodule at the area of concern. Electronically signed by: Alcides Morgan MD (05/28/2019 1:46 PM) [facility]-KCIC2
== END | disposition home or self-care (01) ==
LOC: KCIC US 14:45
PROVIDERS: ATTEND Nurse Practitioner Family
DX: R22.31 Localized swelling, mass and lump, right upper limb (principal); M79.89 Other specified soft tissue disorders; Q68.1 Congenital deformity of finger(s) and hand
CPT/HCPCS: 73130; 76881

== ENCOUNTER → 2019-06-18 | Outpatient (CLI) | payer MEDICARE, OTHER ==
[2018-02-24 15:00] VITALS: BP 134/71
[~2019-06-18] MED LIST changes: +IOHEXOL 240 MG/ML 50ML VIAL. ONE; +MULT-121 PO; +methylPREDNISolone ACETATE 40 MG/ML VIAL. ONE; +methylPREDNISolone ACETATE 80 MG/ML VIAL. ONE
--- NOTE | 2019-06-19 02:44 | PAIN ---
DATE OF SERVICE: 06/18/2019 INITIAL CONSULTATION FOR PAIN CLINIC CHIEF COMPLAINT: Neck and right upper extremity pain. HISTORY OF PRESENT ILLNESS: The patient is a 73-year-old female who presents with history of pain in the base of the neck, right upper extremity, right shoulder, some on the left as well, but mostly on the right for many years, worse over the past 6-7 months. The patient reports it is increasing without any specific injury or action that she is aware of. She has had both anterior and posterior fusions of the cervical spine as well as posterior fusion of the lumbar spine and multiple surgeries as well. The patient reports that the pain now is increasing over the past few months in the base of the neck, right upper extremity, right lateral shoulder, anterior shoulder and posterior shoulder and shoulder blade itself and the base of the neck, worse with extension, raising her hand over her head with her right side, any weightbearing maneuvers, repetitive motions, driving a car with her right hand. The patient reports it awakens her from sleep at night frequently, does not affect her bowel or bladder control, but it does affect her ability to walk with some balance issues as well. The patient has been taking Aleve, which helps decrease the pain moderately. The patient has had no formal physical therapies at this point. She does do some stretching and exercises since therapy she has had in the past, but nothing recently. The patient reports the pain is radiating into the right upper extremity, sometimes into the forearm, but mostly just in the shoulder and the upper arm with a numbness sensation in the arm as well, especially when sleeping on the right or left side. The patient reports it is sharp and stabbing in the base of the neck, aching and dull. The patient did have plain films of the cervical spine showing postoperative changes at C5-C6 with moderate multiple level cervical spondylosis, most prominent at C4-C5 and C6-C7 with postoperative changes at the C5-C6 with posterior stabilization on the right and interbody fusion. PAST MEDICAL HISTORY: Significant for COPD, diabetes, arthritis, TIAs. PREVIOUS SURGERIES: Include hysterectomy, spinal fusion, both cervical and lumbar, tonsillectomy and appendectomy. CURRENT MEDICATIONS: Include Januvia, Micardis, sertraline, daily baby aspirin, Lantus insulin, fiber, NovoLog and multivitamins. ALLERGIES: The patient has no known drug allergies. FAMILY HISTORY: Significant for no major medical problems or conditions that she lists. SOCIAL HISTORY: The patient does not drink, does not smoke, does not use any illegal, illicit or recreational drugs. She is single, lives locally in [place], [place]. REVIEW OF SYSTEMS: The patient's review of systems is positive for those items mentioned in history of present illness. All systems reviewed and otherwise negative. It is complete, full and well documented on the patient's chart. PHYSICAL EXAMINATION: VITAL SIGNS: The patient's blood pressure is 128/76, pulse 101, respirations 18, temperature 98.6 degrees Fahrenheit, height is 5 feet 3 inches, weight is 197 pounds. GENERAL: The patient is awake, alert, oriented, very appropriate and pleasant demeanor. HEENT: Shows normocephalic, atraumatic. Extraocular movements are intact and symmetrical. Oral cavity: Mucous membranes moist and pink. Dentition is intact. NECK: Shows anterior throat supple without palpable lymphadenopathy noted. Swallow reflex symmetrical. CHEST: Shows normal on inspection. Breath sounds clear to auscultation bilaterally. HEART: Shows S1, S2 clear. No murmurs auscultated. ABDOMEN: Obese but soft, nontender, nondistended. SPINE: Back shows spine grossly in the midline. Normal appearing cervical lordotic curvature, some minor increase in thoracic kyphosis and some flattening of lumbar lordotic curvature. Cervical paraspinous muscle shows symmetrical on inspection, on palpation shows some moderate tenderness diffusely bilaterally, but only diffusely in the inferior aspect of the cervical paraspinous musculature as well as the superior medial and lateral trapezius on the right, also some moderate tenderness with very firm rope-like musculature in the superior trapezius as well as the supraspinatus region on the right side, but not the left. The patient has good rotational motion of cervical spine with some mild pain especially with far left lateral rotation, but less so on the right. The patient shows full extension, full forward flexion without significant limitation or pain reported. The patient's low back shows well-healed surgical scarring as well. Lumbar paraspinous muscle shows symmetrical on inspection, with palpation shows some moderate tenderness diffusely bilaterally going diffusely without radiation. EXTREMITIES: Upper extremities show deep tendon reflexes at 2+ in the biceps and triceps tendons. Motor exam is strong with floor winder strength rated approximately 4 on a scale of 5 on the right, 5/5 on the left. Bicep and tricep flexion likewise 4/5 right, 5/5 left. Peripheral pulses are 2+ radial. No peripheral edema is noted. Upper extremities are warm and dry to touch, equal in color and appearance. Shoulder shrug is strong and intact without loss of strength on resistance as is abduction of the shoulders 90 degrees with some pain reported at the base of the neck on the right side, but without loss of strength. SKIN: Shows warm and dry, good turgor. No edema. No sores, rashes or bruising. IMPRESSION: 1. This is a 73-year-old female with a long history of neck and right upper extremity pain, worse over the past 6-7 months. 2. Plain films of cervical spine as noted. 3. Diabetes. 4. Chronic obstructive pulmonary disease. 5. Arthritis. PLAN: Options were discussed with the patient including conservative medical managements, physical therapies and interventional techniques. She would like to pursue interventional techniques. We discussed a cervical epidural steroid injection using description as well as anatomical models to describe the procedure. Risks were then discussed including, but not limited to bleeding, infection, possibility of epidural hematoma, subsequent neurological compromise, dural puncture, headaches, spinal cord and/or nerve damage, side effects of steroid medication and poor results regarding pain control. The patient understands and wished to proceed. The patient will return to clinic in approximately 2 weeks for followup. She was counseled on return appointment, activity level and side effects to be aware of. DIAGNOSES: Cervical radiculopathy with cervical degenerative disk disease and cervical post-laminectomy syndrome. PROCEDURE: Cervical epidural steroid injection with translaminar approach at the C6-C7 level using C-arm fluoroscopic guidance under sterile prep and drape using local anesthetic. MEDICATION INJECTED: A total of 80 mg of Depo-Medrol plus 5 mL of preservative-free normal saline and 2 mL of contrast. CONDITION AT DISCHARGE: Stable. The patient tolerated procedure well, had no complications. SHANNAN BALDERRAMA MD DR: YISEL/an JOB#: [id number] / [id number] ELEONORA Joseph APRN
== END ==
LOC: PNCL 12:54
PROVIDERS: ATTEND Anesthesiology
DX: M50.123 Cervical disc disorder at C6-C7 level with radiculopathy (principal); J44.9 Chronic obstructive pulmonary disease, unspecified; E11.9 Type 2 diabetes mellitus without complications; Z87.39 Personal history of other diseases of the musculoskeletal system and connective tissue; Z86.73 Personal history of transient ischemic attack (TIA), and cerebral infarction without residual deficits; Z90.710 Acquired absence of both cervix and uterus; Z79.84 Long term (current) use of oral hypoglycemic drugs
CPT/HCPCS: 62321; J1030; J1040; Q9966

== ENCOUNTER → 2019-07-03 | Outpatient (CLI) | payer MEDICARE, OTHER ==
[2018-02-24 15:00] VITALS: BP 134/71
[~2019-07-03] MED LIST changes: +IOHEXOL 180 MG/ML 10 ML VIAL. ONE; -IOHEXOL 240 MG/ML 50ML VIAL. ONE
--- NOTE | 2019-07-03 11:15 | PAIN ---
DATE OF SERVICE: 07/03/2019 PROGRESS NOTE FOR PAIN CLINIC DIAGNOSES: Cervical radiculopathy with cervical degenerative disk disease and cervical post-laminectomy syndrome. HISTORY OF PRESENT ILLNESS: The patient is a 73-year-old female who returns for followup status post cervical epidural steroid injection x 1. The patient reports about 20% improvement only for about a week after the injection. The pain returned in the base of neck and shoulders, more on the right than the left and to the upper extremities on the right side as well. The patient reports initially she was doing much better. She was increasing her activities at work and at home, doing household activities with greater ease and comfort. The patient reports she is still sleeping well at night, does not bother her when she is sleeping, worse when she is up and around, now more noticeable in the base of the neck and shoulders radiating more on the right than the left. The patient reports into the right trapezius as well as into the forearm, but without any loss of function above baseline. The patient reports the pain is 6 on a scale of 10 at all times, worst, least and average in the past week and is a 6 today. The patient reports it is aching and dull, tight and shooting as well as some cramping and stabbing pain in the base of the neck and that becomes severe at times. No new motor or sensory deficits or other complaints. PHYSICAL EXAMINATION: VITAL SIGNS: The patient's blood pressure 136/62, pulse 74, respirations 18, temperature 98.2 degrees Fahrenheit, height is 5 feet 3 inches, weight is 197 pounds. GENERAL: The patient is awake, alert, oriented, appropriate, very pleasant demeanor. HEENT: Head shows normocephalic, atraumatic. Extraocular movements are intact and symmetrical. Oral cavity, mucous membranes are moist and pink. Dentition is intact. NECK: Shows anterior throat supple without palpable lymphadenopathy noted. Swallow reflex symmetrical. CHEST: Shows normal on inspection. Breath sounds are clear bilaterally. HEART: Shows S1, S2 clear. No murmurs auscultated. ABDOMEN: Soft, nontender, nondistended. No palpable organomegaly is noted. No rebound or guarding demonstrated. BACK: Shows spine grossly in the midline, normal-appearing cervical lordotic curvature, slight decrease in cervical lordosis, normal appearing thoracic kyphotic curvature. Cervical paraspinous muscle shows well-healed surgical scar in the midline. With palpation shows some moderate tenderness diffusely, but is symmetrical bilaterally without specific trigger points. This is true into the superior medial trapezius, slightly more tender on the right than the left, again without trigger points or radiation. The patient has good rotational motion of cervical spine with some minor tenderness with right lateral rotation, but none with extension, flexion or left lateral rotation. EXTREMITIES: The patient's upper extremities show deep tendon reflexes 2+ in the biceps and triceps tendons. Motor exam is approximately 4 on a scale of 5 on the right with manager hvac strength, bicep and tricep flexion 5/5 on the left. Peripheral pulses are 2+ radial distribution. No peripheral edema is noted bilaterally. Options were discussed with the patient. The patient's old chart was reviewed as her current medication regimen updated. Current review of systems updated today as well. We will proceed with a second in a series of cervical epidural steroid injection today with fluoroscopic guidance. Risks were again discussed including, but not limited to bleeding, infection, possibility of epidural hematoma, subsequent neurological compromise, dural puncture, headaches, spinal cord and/or nerve damage, side effects of steroid medication and poor results regarding pain control. The patient understands and wished to proceed. The patient will return to clinic in approximately 2 weeks for followup. She was counseled on return appointment, activity level and side effects to be aware of. DIAGNOSES: Cervical radiculopathy with cervical degenerative disk disease and cervical post-laminectomy syndrome. PROCEDURE: Cervical epidural steroid injection, translaminar approach at the C6-C7 level using C-arm fluoroscopic guidance under sterile prep and drape using local anesthetic. MEDICATION INJECTED: A total of 120 mg Depo-Medrol plus 5 mL of preservative-free normal saline and 2 mL of contrast. CONDITION AT DISCHARGE: Stable. The patient tolerated the procedure well, had no complications. SHANNAN BALDERRAMA MD DR: YISEL/an JOB#: [id number] / [id number]
== END | disposition home or self-care (01) ==
LOC: PNCL 09:51
PROVIDERS: ATTEND Anesthesiology
DX: M50.123 Cervical disc disorder at C6-C7 level with radiculopathy (principal); M96.1 Postlaminectomy syndrome, not elsewhere classified; Z98.890 Other specified postprocedural states
CPT/HCPCS: 62321; J1030; J1040; Q9965

== ENCOUNTER → 2019-08-07 | Outpatient (CLI) | payer MEDICARE, OTHER ==
[2018-02-24 15:00] VITALS: BP 134/71
[~2019-08-07] MED LIST changes: +BUPIVACAINE MPF 0.25% 10 ML VIAL. ONE; -IOHEXOL 180 MG/ML 10 ML VIAL. ONE; -methylPREDNISolone ACETATE 80 MG/ML VIAL. ONE
--- NOTE | 2019-08-07 11:20 | PAIN ---
DATE OF SERVICE: 08/07/2019 PROGRESS NOTE FOR PAIN CLINIC DIAGNOSES: 1. Cervical radiculopathy with cervical degenerative disk disease and cervical post-laminectomy syndrome. 2. Lumbar radiculopathy with lumbar degenerative disk disease and lumbar post-laminectomy syndrome. 3. Myofascial pain. HISTORY OF PRESENT ILLNESS: The patient is a 73-year-old female who returns for followup status post cervical epidural steroid injection x 2 with initially about 25% improvement after the last injection only minimal improvement in the pain, especially in the neck and shoulders and headaches. The patient reports it is becoming much more tight in sensation at the base of neck and shoulders, upper back, as well as the mid back. The patient reports daily headaches, which have been unaffected since the injections. The patient reports some numbness in the left hand as well. There was still some radicular pain on the left side. The patient reports it is a 7 on a scale of 10 at all times, average at its least and at its worst, and is a 7 on a scale of 10 today. Describes as aching and dull, sharp, tight, burning in the shoulders and neck. The patient reports no new motor or sensory deficits, no new changes. PHYSICAL EXAMINATION: VITAL SIGNS: The patient's blood pressure is 121/83, pulse 107, respirations 16, temperature 98.1 degrees Fahrenheit, height is 5 feet 3 inches and weight is 204 pounds. GENERAL: The patient is awake, alert, oriented, appropriate, very pleasant demeanor. HEENT: Head shows normocephalic, atraumatic. Extraocular movements are intact and symmetrical. Oral cavity: Mucous membranes moist and pink. Dentition is intact. NECK: Shows anterior throat supple without palpable lymphadenopathy noted. Swallow reflex symmetrical. CHEST: Shows normal on inspection. Breath sounds are clear bilaterally. HEART: Shows S1, S2 clear. No murmurs auscultated. ABDOMEN: Soft, nontender, nondistended. BACK: Shows spine grossly in the midline. Cervical paraspinous muscle shows symmetrical on inspection with a well-healed surgical scar noted. With palpation shows some significant tenderness and very firm rope-like musculature in the upper, middle and lower distribution of the cervical paraspinous musculature as well as the trapezius, more on the left than the right, but present bilaterally and also into the upper thoracic paraspinous musculature, again more tender on the left than the right, but present bilaterally with very firm rope-like musculature consistent with areas of trigger point muscle without specific radiation. The patient has good rotational motion of cervical spine, both laterally as well as extension and flexion with only some mild pain with extension, but not forward flexion or right and left lateral rotation. EXTREMITIES: The patient's upper extremities show deep tendon reflexes 2+ in the biceps, triceps tendons. Motor exam is approximately 4 on a scale of 5 on the right and 5/5 on the left with baker second strength, bicep and tricep flexion. Peripheral pulses are 2+ radial. No peripheral edema is noted. Options were discussed with the patient. The patient's old chart was reviewed as her current medication regimen updated. Current review of systems updated today as well. We will proceed with trigger point injections of the identified musculature. Risks were discussed including but not limited to bleeding, infection, possibility of intravascular injection sequelae, spread of local anesthetic and numbness, pneumothorax, side effects of steroid medication and poor results regarding pain control. The patient understands and wished to proceed. The patient will return to clinic in approximately 2 weeks for followup. She was counseled on return appointment, activity level and side effects to be aware of. DIAGNOSIS: Myofascial pain. PROCEDURE: Trigger point injections, bilateral cervical paraspinous musculature, bilateral trapezius musculature, bilateral thoracic paraspinous musculature under sterile prep and drape using local anesthetic. MEDICATION INJECTED: A total of 40 mg Depo-Medrol plus total of 9 mL of 0.25% bupivacaine after negative aspiration at each injection site. CONDITION AT DISCHARGE: Stable. The patient tolerated the procedure well, had no complications. SHANNAN BALDERRAMA MD DR: YISEL/an JOB#: [id number] / [id number]
== END ==
LOC: PNCL 09:55
PROVIDERS: ATTEND Anesthesiology
DX: M79.18 Myalgia, other site (principal); M51.16 Intervertebral disc disorders with radiculopathy, lumbar region; M50.10 Cervical disc disorder with radiculopathy, unspecified cervical region; M96.1 Postlaminectomy syndrome, not elsewhere classified
CPT/HCPCS: 20553; J1030; J3490

== ENCOUNTER → 2019-08-21 | Outpatient (CLI) | payer MEDICARE, OTHER ==
[2018-02-24 15:00] VITALS: BP 134/71
--- NOTE | 2019-08-21 10:52 | PAIN ---
DATE OF SERVICE: 08/21/2019 PROGRESS NOTE FOR PAIN CLINIC DIAGNOSES: 1. Cervical radiculopathy with cervical degenerative disk disease and cervical post-laminectomy syndrome. 2. Lumbar radiculopathy with lumbar degenerative disk disease and lumbar post-laminectomy syndrome. 3. Myofascial pain. HISTORY OF PRESENT ILLNESS: The patient is a 73-year-old female who returns for followup status post cervical epidural steroid injections as well as trigger point injection. The patient did very well after the last trigger point injections on 08/07/2019. The patient reports about 60% improvement overall and was increasing her activity with greater ease and comfort, walking greater distances, using her upper extremities with greater ease and comfort, sleeping better at night, it still does not awaken her from sleep at night. The patient reports the pain is beginning to return now in the base of neck and shoulders as well as the upper back, mid back bilaterally. The patient reports it is a 7 on a scale of 10 at its worst over the past week, 7 on average, 5 at its least and is a 7 today. The patient reports it is a tingling pain that is sharp and dull, alternating aching and becoming more constant in the base of neck and shoulder as well as upper back, mid back. The patient reports no new motor or sensory deficits, no loss of motor function. No other complaints. PHYSICAL EXAMINATION: VITAL SIGNS: The patient's blood pressure 132/92, pulse is 105, respirations 16, temperature is 98.0 degrees Fahrenheit, height is 5 feet 3 inches, weight is 207 pounds. GENERAL: The patient is awake, alert, oriented, appropriate, very pleasant demeanor. HEENT: Shows normocephalic, atraumatic. Extraocular movements are intact and symmetrical. Oral cavity shows mucous membranes are moist and pink. Dentition is intact. NECK: Shows anterior throat supple without palpable lymphadenopathy noted. Swallow reflex symmetrical. CHEST: Shows normal on inspection. Breath sounds are clear bilaterally. HEART: Shows S1, S2 clear. No murmurs auscultated. ABDOMEN: Soft, nontender, nondistended. No palpable organomegaly is noted. No rebound or guarding demonstrated. BACK: Shows spine grossly in the midline. Normal appearing thoracic kyphosis and slight exaggeration of cervical flattening of cervical lordosis and slight increase in thoracic kyphosis. Cervical paraspinous muscle shows symmetrical on inspection, on palpation shows some moderate tenderness diffusely bilaterally, but only diffusely without significant radiation. The patient does show very firm rope-like musculature in the superior, middle and inferior aspect of the cervical paraspinous musculature, right essentially equal to left, again without asymmetry, but with very firm rope-like musculature consistent with trigger point areas of musculature. This is true into the superior medial and lateral trapezius, left slightly greater than right, but present and tender bilaterally without radiation, also into the bilateral thoracic paraspinous musculature again right equal to left to about the mid thoracic distribution with very firm rope-like musculature consistent with trigger point areas of muscle again very tender with palpation but without specific radiation. EXTREMITIES: The patient's upper extremities show deep tendon reflexes 2+ in the biceps, triceps tendons. Motor exam is strong with approximately 4 on a scale of 5 with right refrigerator tester strength and 5/5 on the left. Bicep and tricep flexion is 5/5 and equal. Peripheral pulses are 2+ radial. No peripheral edema is noted bilaterally. Options were discussed with the patient. The patient's old chart was reviewed as her current medication regimen updated. Current review of systems updated today as well. We will proceed with trigger point injections of the identified musculature. Risks were discussed, including but not limited to bleeding, infection, possibility of intravascular injection sequelae, pneumothorax, spread of local anesthetic and numbness, side effects of steroid medication as well as poor results regarding pain control. The patient understands and wished to proceed. The patient will return to clinic in approximately 2 weeks for followup. She was counseled on return appointment, activity level and side effects to be aware of. DIAGNOSES: Myofascial pain. PROCEDURE: Trigger point injections, bilateral cervical paraspinous muscles, bilateral trapezius musculature, bilateral thoracic paraspinous musculature under sterile prep and drape using local anesthetic. MEDICATION INJECTED: A total of 12 mL of 0.25% bupivacaine and 40 mg total of Depo-Medrol after negative aspiration at each injection site. CONDITION AT DISCHARGE: Stable. The patient tolerated procedure well, had no complications. SHANNAN BALDERRAMA MD DR: YISEL/an JOB#: [id number] / [id number]
== END ==
LOC: PNCL 09:46
PROVIDERS: ATTEND Anesthesiology
DX: M79.18 Myalgia, other site (principal); M51.16 Intervertebral disc disorders with radiculopathy, lumbar region; M96.1 Postlaminectomy syndrome, not elsewhere classified; M50.10 Cervical disc disorder with radiculopathy, unspecified cervical region
CPT/HCPCS: 20553; J1030; J3490

== ENCOUNTER → 2020-03-19 | Outpatient (CLI) | payer MEDICARE, OTHER ==
[2018-02-24 15:00] VITALS: BP 134/71
[~2020-03-19] MED LIST changes: -BUPIVACAINE MPF 0.25% 10 ML VIAL. ONE; +MULT-445 PO; -MULT1TAB52 PO; -methylPREDNISolone ACETATE 40 MG/ML VIAL. ONE
--- NOTE | 2020-03-19 14:27 | KCIC ---
Study: XR HAND_RIGHT 3 VIEWS Indication: Right hand pain. Recent fall. Comparison: None. Findings: No acute fracture is identified throughout the hand or wrist. No traumatic malalignment. Increased in clination angle of the radial articular surface, irregular morphology of the ulnar styloid process an d ulnar minus variance. The findings could be developmental or related to remote injury. Mild interphalangeal joint arthrosis at a few locations but with relatively well maintained joint spa ce height. At the wrist, degenerative changes at the triscaphe and first CMC joint. Impression: 1. No acute osseous abnormality seen throughout the hand or wrist. If there is ongoing concern follow -up radiographs could be performed in 2 weeks. 2. Chronic/degenerative findings detailed in the body the report. Electronically signed by: CURTIS CLARK MD (03/19/2020 2:25 PM) [id number]
== END ==
LOC: KCIC 10:53
PROVIDERS: ATTEND Orthopaedic Surgery Sports Medicine
DX: M19.041 Primary osteoarthritis, right hand (principal)
CPT/HCPCS: 73130